=== PATIENT | male | born 1960 | race Caucasian/White ===

== ENCOUNTER → 2016-09-06 | Outpatient (CLI) | payer BC, OTHER ==
[2013-08-20 09:03] VITALS: BP 174/74
--- NOTE | 2016-09-06 12:34 | RAD ---
HISTORY: Preop. Study: PA and lateral chest. Comparison: None. Findings: The trachea is midline. The cardiac silhouette is unremarkable. The lungs are clear without focal infiltrate or effusion. The bony thorax is unremarkable. IMPRESSION: 1. No acute cardiopulmonary disease. Reported By:
--- NOTE | 2016-09-07 09:29 | RAD ---
Upper GI series Indication: Preop evaluation for gastric sleeve Comparison: None available Technique: Multiple fluoroscopic images of the abdomen were obtained during the administration of or al barium. Findings: The thoracic esophagus demonstrates normal motility without evidence for extrinsic or intrinsic mass lesion. The GE junction is widely patent without evidence for stricture. The gastric contour and duodenal bulb demonstrate normal mucosal pattern and configuration. No evidence for duodenal strict ure, mass, or ulceration can be identified. The visualized portions of the proximal small bowel are unremarkable as well. there is reflux of contrast to the level of the mid thoracic esophagus. The total fluoroscopy time utilized was 2.2 minutes. IMPRESSION: 1. Moderate gastroesophageal reflux with contrast refluxing to the level of the mid thoracic esophag us. 2. No mucosal irregularity, ulcer, mass or morphologic abnormality identified within the esophagus, stomach or duodenum. Reported By:
== END | disposition home or self-care (01) ==
LOC: RAD 11:00
PROVIDERS: ATTEND Student in an Organized Health Care Education/Training Program
DX: Z01.810 Encounter for preprocedural cardiovascular examination (principal); Z01.811 Encounter for preprocedural respiratory examination; Z01.818 Encounter for other preprocedural examination; E66.01 Morbid (severe) obesity due to excess calories; K21.9 Gastro-esophageal reflux disease without esophagitis
CPT/HCPCS: 71020; 74241; 93005; 93010